=== PATIENT | female | born 1995 ===

== ENCOUNTER 2021-05-30 15:55 | Outpatient (CLI) | payer OTHER | END 2021-05-30 17:41 | disposition home or self-care (01) | LOC: PRENATAL 15:55 | PROVIDERS: ATTEND Obstetrics & Gynecology Maternal & Fetal Medicine | DX: O35.0XX1 Maternal care for (suspected) central nervous system malformation in fetus, fetus 1 (principal); O35.3XX1 Maternal care for (suspected) damage to fetus from viral disease in mother, fetus 1; O98.512 Other viral diseases complicating pregnancy, second trimester; Z36.89 Encounter for other specified antenatal screening; Z3A.19 19 weeks gestation of pregnancy ==

== ENCOUNTER 2021-07-25 10:24 | Outpatient (CLI) | payer OTHER | END 2021-07-25 12:31 | disposition home or self-care (01) | LOC: PRENATAL 10:24 | PROVIDERS: ATTEND Obstetrics & Gynecology Maternal & Fetal Medicine | DX: O35.0XX0 Maternal care for (suspected) central nervous system malformation in fetus, not applicable or unspecified (principal); O35.3XX0 Maternal care for (suspected) damage to fetus from viral disease in mother, not applicable or unspecified ==

== ENCOUNTER 2021-08-22 15:11 | Outpatient (CLI) | payer OTHER | END 2021-08-22 16:25 | disposition home or self-care (01) | LOC: PRENATAL 15:11 | PROVIDERS: ATTEND Obstetrics & Gynecology Maternal & Fetal Medicine | DX: O26.849 Uterine size-date discrepancy, unspecified trimester (principal); O92.013 Retracted nipple associated with pregnancy, third trimester ==

== ENCOUNTER 2021-09-23 14:11 | Outpatient (CLI) | payer OTHER | END 2021-09-23 15:00 | disposition home or self-care (01) | LOC: PRENATAL 14:11 | PROVIDERS: ATTEND Obstetrics & Gynecology Maternal & Fetal Medicine | DX: O26.849 Uterine size-date discrepancy, unspecified trimester (principal); Z3A.36 36 weeks gestation of pregnancy ==